=== PATIENT | female | born 1960 | race Two or more races ===

== ENCOUNTER 2020-04-28 13:30 | Outpatient (CLI) | payer OTHER | END 2020-04-28 13:38 | disposition home or self-care (01) | LOC: LAB 13:30 | PROVIDERS: ATTEND Family Medicine | DX: M13.0 Polyarthritis, unspecified (principal) ==

== ENCOUNTER 2021-04-06 17:00 | Emergency (ER) | payer OTHER ==
[~2021-04-06] VITALS: Ht 167.6 cm; Wt 65.8 kg
[2021-04-06] MEDS ORDERED: NORFLEX100MG PO (21:14)
== END 2021-04-06 21:40 | disposition home or self-care (01) ==
LOC: ER 17:00
DX: S30.1XXA Contusion of abdominal wall, initial encounter (principal); S30.0XXA Contusion of lower back and pelvis, initial encounter; S60.212A Contusion of left wrist, initial encounter; S50.02XA Contusion of left elbow, initial encounter; S00.83XA Contusion of other part of head, initial encounter; W18.39XA Other fall on same level, initial encounter; Y93.89 Activity, other specified; Y92.098 Other place in other non-institutional residence as the place of occurrence of the external cause; Y99.8 Other external cause status